=== PATIENT | male | born 2000 | race African-American/Black ===

== ENCOUNTER 2022-09-09 11:48 | Emergency (ER) | payer OTHER, SELFPAY ==
--- NOTE | ~2022-09-09 | XR_ITS ---
EXAMINATION: XR KNEE, LEFT CLINICAL INFORMATION: Pain COMPARISON: None available. TECHNIQUE: Four views of the left knee. FINDINGS: Bones and soft tissues are normal. No fracture or joint effusion. Alignment is anatomic. Joint spaces are well maintained. No abnormal soft tissue calcification. XR/XR knee LT 4V IMPRESSION: Normal left knee.
[2022-09-09 12:00] VITALS: BP 151/91; PULSE 102; RESP 16; TEMP 36.6; O2SAT 99; BMI 30.1
--- NOTE | 2022-09-09 12:02 | ED.EXTPRO ---
HPI - Extremity Problem General Chief complaint: Extremity Injury, Lower <ROBERT Loya - Last Filed: 09/09/22 12:03> Stated complaint: knee injury <ROBERT Loya - Last Filed: 09/09/22 12:03> Time Seen by Provider: 09/09/22 12:53 <ROBERT Loya - Last Filed: 09/09/22 12:03> History of Present Illness HPI Narrative: Patient complains of left knee pain after twisting it 2 weeks ago, still limping on it is still painful, no numbness no weakness no other injury no head injury no neck pain no back pain <ROBERT Montemayor - Last Filed: 09/09/22 13:44> Related Data Allergies/Adverse reactions: Allergies Allergy/AdvReac Type Severity Reaction Status Date / Time amoxicillin Allergy Severe Anaphylaxis Verified 09/09/22 12:01 Penicillins Allergy Severe Anaphylaxis Verified 09/09/22 12:01 <ROBERT Loya - Last Filed: 09/09/22 12:03> [facility] Past Medical History Source: nursing notes reviewed <ROBERT Montemayor - Last Filed: 09/09/22 13:44> Social History Social History: Social History Advance Directives: No Advance Directives Information Provided: No <ROBERT Loya - Last Filed: 09/09/22 12:03> Physical Exam Vital Signs: Vital Signs: Last Vital Signs Temp 97.9 F 09/09/22 12:00 Pulse 102 H 09/09/22 12:00 Resp 16 09/09/22 12:00 BP 151/91 H 09/09/22 12:00 Pulse Ox 99 09/09/22 12:00 O2 Del Method Room Air 09/09/22 12:00 BMI result Body Mass Index 30.1 <ROBERT Loya - Last Filed: 09/09/22 12:03> Vital Signs: Last Vital Signs Temp 97.9 F 09/09/22 12:00 Pulse 102 H 09/09/22 12:00 Resp 16 09/09/22 12:00 BP 151/91 H 09/09/22 12:00 Pulse Ox 99 09/09/22 12:00 O2 Del Method Room Air 09/09/22 12:00 BMI result Body Mass Index 30.1 <ROBERT Montemayor - Last Filed: 09/09/22 13:44> General appearance is no distress Head is normocephalic atraumatic Neck is supple nontender Respiratory no distress Extremities the left knee head medial tenderness some mild swelling, patient can do a straight leg raise, he can ambulate with a limp, there was no obvious ligamentous laxity no redness no warmth no obvious effusion, neurovascular intact distal Other extremities normal Skin no lacerations or rash Neuro no focal motor sensory deficits <ROBERT Montemayor - Last Filed: 09/09/22 13:44> Course Course Course Narrative: This is an RME: Additional HPI, ROS, PE not included below will be deferred to primary provider. 22-year-old male presents for evaluation of left knee pain status post trip and fall a few weeks ago pain has been persistent ever since, he reports that when he fell he twisted his knee heard a crack and a pop, ever since then has been having significant pain worse with range of motion better at rest. Denies numbness and tingling, fevers and chills. No previous issues with left knee. Physical exam patient ambulating with limp favoring the right side. Neurovascular status intact. Plan imaging <ROBERT Loya - Last Filed: 09/09/22 12:03> This is an RME: Additional HPI, ROS, PE not included below will be deferred to primary provider. 22-year-old male presents for evaluation of left knee pain status post trip and fall a few weeks ago pain has been persistent ever since, he reports that when he fell he twisted his knee heard a crack and a pop, ever since then has been having significant pain worse with range of motion better at rest. Denies numbness and tingling, fevers and chills. No previous issues with left knee. Physical exam patient ambulating with limp favoring the right side. Neurovascular status intact. Plan imaging X-ray of left knee was normal No fractures no bony injuries Patient with soft tissue injury in the knee is advised to follow with orthopedist, he ambulates easily with a limp and is discharged <ROBERT Montemayor - Last Filed: 09/09/22 13:44> Medications Administered Discontinued Medications Generic Name Dose Route Start Last Admin Trade Name Freq PRN Reason Stop Dose Admin Ketorolac Tromethamine 30 mg 09/09/22 12:01 09/09/22 12:26 Ketorolac Tromethamine 15 Mg/Ml Vial IM 09/09/22 12:02 30 mg ONCE ONE Administration <ROBERT Loya - Last Filed: 09/09/22 12:03> Medications Administered Discontinued Medications Generic Name Dose Route Start Last Admin Trade Name William PRN Reason Stop Dose Admin Ketorolac Tromethamine 30 mg 09/09/22 12:01 09/09/22 12:26 Ketorolac Tromethamine 15 Mg/Ml Vial IM 09/09/22 12:02 30 mg ONCE ONE Administration <ROBERT Montemayor - Last Filed: 09/09/22 13:44> Discharge Plan Discharge Clinical Impression: Left knee sprain <ROBERT Loya - Last Filed: 09/09/22 12:03> Patient Disposition: Home, Self-Care <ROBERT Loya - Last Filed: 09/09/22 12:03> Additional Instructions: X-ray of the left knee was normal On exam it is possible you damaged cartilage or ligament inside the knee which does not show up on x-ray so you need to follow with a specialist orthopedist They may do an MRI which shows soft tissue if things do not improve, and if it shows something damaged they may offer a surgical repair Return any time any worse condition or any concerns You can use Tylenol or and or Motrin as needed [id number], apply ice <ROBERT Loya - Last Filed: 09/09/22 12:03> Referrals: Louie Martell MD [Physician] - (Left knee sprain) <ROBERT Loya - Last Filed: 09/09/22 12:03>
[2022-09-09] MEDS: Ketorolac Tromethamine 15 MG/ML VIAL 30 MG IM (12:26)
== END 2022-09-09 14:09 | disposition home or self-care (01) ==
PROVIDERS: Emergency Provider Emergency Medicine
DX: S83.92XA Sprain of unspecified site of left knee, initial encounter (principal); X50.1XXA Overexertion from prolonged static or awkward postures, initial encounter; Y93.9 Activity, unspecified; Y92.9 Unspecified place or not applicable; Y99.9 Unspecified external cause status
CPT/HCPCS: 73564; 96372; 99283; 99284; J1885

== ENCOUNTER 2022-09-28 07:32 | Outpatient (REF) | payer OTHER, SELFPAY | END 2022-09-28 07:33 | disposition home or self-care (01) | LOC: HO.HOSX 07:32 | PROVIDERS: Visit Provider Physician Assistant | DX: Z13.89 Encounter for screening for other disorder (principal) ==